=== PATIENT | female | born 1990 | race Caucasian/White ===

== ENCOUNTER 2018-04-09 14:46 | Emergency (ER) | payer MEDICAID ==
[~2018-04-09 14:46] MED LIST changes: -DIPH25CA83 PO; -PRED10TA PO; -diphenhydrAMINE 25mg capsule PO ONE; -predniSONE 20 mg tablet PO ONE
[2018-04-09] MEDS ORDERED: DIPH25CA83 PO (21:15)
[2018-04-09] MEDS ORDERED: PRED10TA PO (21:15)
== END 2018-04-09 16:00 | disposition left against medical advice (07) ==
LOC: ER 14:47
DX: L50.9 Urticaria, unspecified (principal); Z53.21 Procedure and treatment not carried out due to patient leaving prior to being seen by health care provider

== ENCOUNTER → 2018-04-09 | Emergency (ER) | payer MEDICAID ==
[~2018-04-09] VITALS: Ht 162.6 cm; Wt 60.9 kg
[~2018-04-09] MED LIST: DIPH25CA83 PO; ONDA8TAB9 PO; PRED10TA PO; diphenhydrAMINE 25mg capsule PO ONE; predniSONE 20 mg tablet PO ONE
[2018-04-09 21:34] VITALS: BP 134/71
--- NOTE | 2018-04-09 21:41 | NUR ---
MELANIE'Cyril CELL PHONE [phone]
[2018-04-11 11:19] LABS: RPR Reactive (Non Reactive)
== END | disposition home or self-care (01) ==
LOC: ER 20:17
DX: R21 Rash and other nonspecific skin eruption (principal); F15.90 Other stimulant use, unspecified, uncomplicated; F11.90 Opioid use, unspecified, uncomplicated; F17.200 Nicotine dependence, unspecified, uncomplicated; Z79.899 Other long term (current) drug therapy
CPT/HCPCS: 36415; 86592; 99283; J7512; Q0163

== ENCOUNTER 2018-04-23 23:51 | Emergency (ER) | payer MEDICAID ==
[~2018-04-23] VITALS: Ht 160 cm; Wt 58.4 kg
[~2018-04-23 23:51] MED LIST changes: +DIPH25CA83 PO; +PRED10TA PO
[2018-04-24 00:42] VITALS: BP 115/70
[2018-04-24] MEDS ORDERED: penicillin G benzathine 1.2 million unit/2ml syringe IM ONE (01:00)
[2018-04-24 01:29] LABS: CLARITY,URINE CLEAR (Clear); COLOR,URINE YELLOW (Yellow); GLUCOSE, URINE NEGATIVE (Neg); KETONES,URINE NEGATIVE (Neg); LEUKOCYTE ESTERASE ,URINE NEGATIVE (Neg); NITRITES, URINE NEGATIVE (Neg); OCCULT BLOOD,URINE NEGATIVE (Neg); PH,URINE 5.5 (4.8-8.0); PROTEIN,URINE NEGATIVE (Neg); URINE HCG NEGATIVE (NEG); UROBILINOGEN,URINE 0.2 E.U/dL (0.2-1.0)
[2018-04-24 01:31] LABS: UA COLLECTION TYPE CLN CATCH MIDSTREAM
--- NOTE | 2018-04-24 01:39 | NUR ---
PATIENT NOT IN ROOM, REGISTRATION REPORTS [facility] FOR [facility] WITH NO RESULTS. CALL PLACED TO NUMBER ON FILE. UNABLE TO LEAVE MESSAGE. DR NEWMAN INFORMED.
== END 2018-04-24 01:45 | disposition left against medical advice (07) ==
LOC: ER 23:52
DX: A53.9 Syphilis, unspecified (principal); F11.90 Opioid use, unspecified, uncomplicated; F15.90 Other stimulant use, unspecified, uncomplicated; Z79.899 Other long term (current) drug therapy
CPT/HCPCS: 81003; 81025; 99283

== ENCOUNTER 2020-04-03 00:07 | Emergency (ER) | payer OTHER, MEDICAID ==
[~2020-04-03] VITALS: Ht 160 cm; Wt 59.1 kg
[2020-04-03 03:26] LABS: URINE HCG NEGATIVE (NEG)
[2020-04-03 03:35] LABS: COLOR,URINE YELLOW (Yellow); GLUCOSE, URINE NEGATIVE (Neg); KETONES,URINE 15 mg/dl (Neg); LEUKOCYTE ESTERASE ,URINE NEGATIVE (Neg); NITRITES, URINE POSITIVE (Neg); OCCULT BLOOD,URINE LARGE (Neg); PROTEIN,URINE 100 mg/dl (Neg); UROBILINOGEN,URINE 0.2 E.U/dL (0.2-1.0)
[2020-04-03 03:42] LABS: CLARITY,URINE CLOUDY (Clear); UA COLLECTION TYPE NON-SPECIFIED
[2020-04-03 03:43] LABS: BACTERIA,URINE 2+ /HPF (Neg); RBC,URINE 0-2 /HPF (0-2); SQUAMOUS EPITHELIAL CELL,UR FEW /LPF (FEW); WBC,URINE 0-4 /HPF (0-4)
[2020-04-03 03:44] LABS: AMORPHOUS URATES 3+
[2020-04-03] MEDS ORDERED: LIDOcaine/epinephrine/tetracaine TOPICAL sol 3 ML syringe TOP ONE (04:10)
[2020-04-03] MEDS ORDERED: azithromycin 250mg tablet PO ONE (04:30)
[2020-04-03] MEDS ORDERED: metroNIDAZOLE 500mg tablet PO ONE (04:30)
[2020-04-03] MEDS ORDERED: CefTRIAXone 250MG IM Kit w/LIDOcaine IM ONE (04:30)
--- NOTE | 2020-04-03 05:40 | NUR ---
0200 obtained dirty urine, sent to lab 0215 escorted pt to SART room accompanied by Christina pt advocate from [facility] 0225 began SART exam and strangulation exam per protocol 0400 Dr. Anguiano at bedside examining pt, ordered CT of facial bones/soft tissue, CT head, CT neck/soft tissue [address] accompanied by Christina 0425 PT returned to SART room 0433 Dr. Anguiano at bedside suturing pt's upper right lip 0450 PT given zithromax 1gram PO, Flagyl 2 gram PO, rocephin 250 mg IM in left deltoid. Ovral emergency contraception was not given because pharmacy does not currently have it in stick and is back ordered. 0515 CT scans came back, read by , pt cleared to D/C 0520 PT offered a shower, she declined because she was about to go to a motel 0530 PT ready to DC, cab called and pt accompanied by Christina to cab and set up with a room in a motel, [facility] is following up with pt.
[2020-04-03] MEDS ORDERED: LIDOcaine 1% 30ml preserv. free vial ONE (08:00)
--- NOTE | 2020-04-03 09:34 | NUR ---
contacted [facility] office to car pick up driver lori
--- NOTE | 2020-04-03 11:21 | NUR ---
officer Tavia arvizu # [id number] picked up SART kit and proper paperwork and CD at 1120 on 04/03/2020
[2020-04-03 11:22] VITALS: BP 107/67
== END 2020-04-03 05:40 | disposition home or self-care (01) ==
LOC: ER 00:08 → EEVIPCON 00:08 → ER 05:40
DX: S01.511A Laceration without foreign body of lip, initial encounter (principal); T74.21XA Adult sexual abuse, confirmed, initial encounter; F15.90 Other stimulant use, unspecified, uncomplicated; F11.90 Opioid use, unspecified, uncomplicated; Z72.89 Other problems related to lifestyle; Z79.899 Other long term (current) drug therapy; Y92.89 Other specified places as the place of occurrence of the external cause; Y93.89 Activity, other specified; Y99.8 Other external cause status
CPT/HCPCS: 12011; 70450; 70486; 70490; 81001; 81025; 87088; 96372; 99285; J0696; J2001; 87077; 87186; J3490

== ENCOUNTER 2020-05-17 20:48 | Emergency (ER) | payer MEDICAID, OTHER ==
[~2020-05-17] VITALS: Ht 160 cm; Wt 70.7 kg
[2020-05-17 20:52] VITALS: BP 141/99
--- NOTE | 2020-05-17 21:14 | NUR ---
Patient here for both teeth pain and suboxone refill. ON/OFF SUBOXONE FOR [address] MALIN ON 04/29/20 PRESCRIBED SUBOXONE 8-2MG FILM PATIENT MISSED HER APPOINMENT WITH MD ON LAST SUNDAY THE PATIENT ADMITS TO RELAPSING ON 05/10/20 BUT DENIES ANY RELAPSE SINCE PATIENT HAS AN APPOINMENT SCHEDULED FOR DR MALIN THIS SUNDAY THE . DAE DORANTES DISCUSSED OPTIONS: ONE DOSE OF SUBOXONE HERE AND WAIT FOR DR SOLITARIO TO ARRIVE AT 220 WHO DOES PRESCRIBE SUBOXONE DAE DORANTES DISCUSSED PROVIDING PCN FOR TEETH PATISUZANNE HAS AN APPOINTMNENT IN MAY WITH [facility]
[2020-05-17] MEDS ORDERED: penicillin V potassium 500mg tablet PO ONE (21:15)
[2020-05-17] MEDS ORDERED: buprenorphine/naloxone 8MG-2MG SUBlingual film SL ONE ×2 (21:15→21:25)
--- NOTE | 2020-05-17 21:50 | NUR ---
PTGIVEN [place] TAB. SHE REPORTS SHE DID HVE A DOES OF NORCO 10, TWO TABS APROX 2.5 HR AGO. Deniz DORANTES UPDATED AND HE DISCONTINUED THE SUBOXONE. DR. NEWMAN TO BE HERE IS APROX 10 MIN AND PT WILL WAIT TO TALK WITH HIM ABOUT SUBOXONE SCRIPT.
[2020-05-17] MEDS ORDERED: BUPR1FIL3 SL (22:09)
[2020-05-17] MEDS ORDERED: IBUP-1984 PO (22:25)
[2020-05-17] MEDS ORDERED: PENI500T2 PO (22:31)
[2020-05-18] MEDS ORDERED: buprenorphine/naloxone 8MG-2MG SUBlingual film SL ONE (08:00)
== END 2020-05-17 22:39 | disposition home or self-care (01) ==
LOC: ER 20:49
DX: K08.89 Other specified disorders of teeth and supporting structures (principal); F17.200 Nicotine dependence, unspecified, uncomplicated; F15.90 Other stimulant use, unspecified, uncomplicated; F11.90 Opioid use, unspecified, uncomplicated; Z76.0 Encounter for issue of repeat prescription; Z72.89 Other problems related to lifestyle; Z79.899 Other long term (current) drug therapy
CPT/HCPCS: 99283